=== PATIENT | female | born 1995 | race Caucasian/White ===

== ENCOUNTER 2023-09-20 11:34 | Emergency (ER) | payer BC, SELFPAY ==
[2023-09-20 11:35] VITALS: BP 149/92
--- NOTE | 2023-09-20 11:49 | ED.GENMED ---
History of Present Illness
<Brianna Khan PA-C - Last Filed: 09/20/23 15:07>
General
Chief Complaint: Back Pain
Source: patient
Exam Limitations: none
Time Seen by Provider: 09/20/23 11:42
Nursing documentation reviewed up to this point in time: agreed with
History of Present Illness
History of Present Illness:
This is a 28-year-old female with a past medical history of bipolar disorder presenting with department today with concerns of low back pain that started yesterday. This started when she was bending over and she immediately got sharp, spasm like
pain in her right lower back. Patient states that she had to pause and breath, eventually her symptoms resolved. Patient states that then she woke up this morning and was driving to work today when she got the sudden onset of severe pain again,
which was so severe that she had to slab puller and could not not drive herself to work. Patient states that the sharp pain since resolved but now she has a dull ache which is worse when standing from seated position and improves with walking and
movement. Patient works [employer] and is on her feet a lot for work. She denies fevers or chills, headache, neck pain, hematuria, saddle paresthesias, urinary incontinence.
Review of Systems
<Brianna Khan PA-C - Last Filed: 09/20/23 15:07>
Review of Systems
All Other Systems: ROS reviewed and negative except as documented in HPI and ROS
Phy Exam
<Brianna Khan PA-C - Last Filed: 09/20/23 15:07>
Physical Exam
Physical Exam:
General: Patient is well appearing and in no acute distress; non-toxic
Skin: Warm and dry, no rashes or lesions
Head: Normocephalic, atraumatic
Eyes: Sclera non-icteric. EOMs intact. PERRLA.
Cardiac: Regular rate
Pulm: Normal respiratory effort
Musculoskeletal: No midline thoracic or lumbar spinal noticed, no palpable step-off, no palpable bony deformity. Mild tenderness palpation of bilateral paralumbar muscles. No pain with passive range of motion of bilateral hips. Negative straight
leg raise bilaterally.
Neuro: CN II-XII intact, no focal neurologic deficits.
Psychiatric: Appropriate mood and affect.
Course
<Brianna Khan PA-C - Last Filed: 09/20/23 15:07>
Orders/Labs/Results
Orders:
Orders
09/20/23 12:09
Ketorolac [Toradol] 15 mg IM NOW STA
09/20/23 12:15
Lidocaine [Lidocaine 4% Patch] 1 patch TOPICAL DAILY
Apply Lidocaine patch(s) to:: right lower back
Vital Signs
Initial and Last Documented VS:
Initial Vital Signs
Temp Pulse Resp BP Pulse Ox
98.6 F 97 18 149/92 99
09/20/23 11:35 09/20/23 11:35 09/20/23 11:35 09/20/23 11:35 09/20/23 11:35
Last Documented Vital Signs
Temp Pulse Resp BP Pulse Ox
98.6 F 97 18 149/92 99
09/20/23 11:35 09/20/23 11:35 09/20/23 11:35 09/20/23 11:35 09/20/23 11:35
<Karl Mandel MD - Last Filed: 09/20/23 13:16>
Orders/Labs/Results
Orders:
Orders
09/20/23 12:09
Ketorolac [Toradol] 15 mg IM NOW STA
09/20/23 12:15
Lidocaine [Lidocaine 4% Patch] 1 patch TOPICAL DAILY
Apply Lidocaine patch(s) to:: right lower back
Vital Signs
Initial and Last Documented VS:
Initial Vital Signs
Temp Pulse Resp BP Pulse Ox
98.6 F 97 18 149/92 99
09/20/23 11:35 09/20/23 11:35 09/20/23 11:35 09/20/23 11:35 09/20/23 11:35
Last Documented Vital Signs
Temp Pulse Resp BP Pulse Ox
98.6 F 97 18 149/92 99
09/20/23 11:35 09/20/23 11:35 09/20/23 11:35 09/20/23 11:35 09/20/23 11:35
<Brianna Khan PA-C - Last Filed: 09/20/23 15:07>
MDM/Problems Addressed
Differential Diagnosis Includes:
ddx include lumbar/thoracic muscular strain, herniated nucleus pulposus, arthritis, scoliosis
MDM/Problems Addressed:
Back pain:
28-year-old female with a past medical history of bipolar disorder presenting with department today with concerns of low back pain that started yesterday. The pain started after bending over. The pain improves with movement, worse with standing from
sitting. She has no radiation of her pain, no fevers or chills, no neurologic symptoms. On physical exam, she has no midline spinal tenderness to palpable bony deformities, no indication for imaging at this time. I suspect musculoskeletal
sprain/strain. Patient will be discharged with muscle relaxant. Patient stable for discharge.
Chronic conditions affecting care:
n/a
Acute Exacerbation and/or Progression of Chronic Illness:
n/a
<Brianna Khan PA-C - Last Filed: 09/20/23 15:07>
*Pulse Oximetry
Patient hypoxic: no
*Critical Care Note
Total Time (30-74mins, 75-104mins- exclusive of procedures): Not Applicable
Data Reviewed
Review of Other/Old Records Reveals: Records (Previous ER physician documentation to review) and Discharge Summary (Discharge summaries [facility] to review)
Source: patient and records
<Brianna Khan PA-C - Last Filed: 09/20/23 15:07>
Patient Management
Escalation/DeEscalation of care consider admission/obs:
Patient stable for discharge
ED Attending Note
<Brianna Khan PA-C - Last Filed: 09/20/23 15:07>
-
Portions of this chart may have been created with voice recognition software.� Occasional wrong word or��sound alike� substitutions may have occurred due to the inherent limitations of voice recognition software.
<Karl Mandel MD - Last Filed: 09/20/23 13:16>
ED Attending Note
Patient seen and examined by attending physician: Yes
ED Attending Note:
I have seen and evaluated the patient with a [id number] encounter. I have spoken to the advance practicer provider and involved in the medical history, the physical exam, medical decision making.
Evaluation and management service: agree unless noted differently below.
Results interpretation: agree unless noted differently below.
Focused HPI: 28-year-old female with no significant chronic medical issues presents to the emergency room for evaluation of low back pain. Patient reports pain across the low back that started yesterday�she says that she did yoga/stretching and
then when she was finished she bent over to picker and packer some close and felt pain in the low back. She says symptoms have been constant since then today she felt spasming in the back that was more severe which prompted ER visit. She feels pain slightly
worse on the right; she says it is worse when she lays or sits still and better when she starts to move around. She denies any radicular/shooting pains down the legs. She denies any weakness or numbness in the legs. She denies any saddle
anesthesia. She denies any incontinence of her bowels or bladder. She denies any fevers or chills. She denies any history of drug use. She denies any history of cancer.
Physical exam: Awake alert not in distress. Marginal hypertension likely from pain, no other significant vital sign abnormalities. She has no midline tenderness in the thoracic or lumbar spine. She has reproducible pain with flexion rotation of
the low back. She has intact 5/5 motor and sensory function proximal and distal lower extremities and is ambulatory with normal gait in the emergency room.
Medical Decision Makin-year-old female presents with low back pain after bending over yesterday�today had some spasming of the low back which prompted ER visit. Exam as above. She has no red flag symptoms or exam findings. She has no fall or
trauma�in my judgment no indication for emergent imaging. Suspect likely muscular strain. Treat with NSAIDs, muscle laxer as needed for spasms. Advised to keep and stretching/early mobility. Follow-up with PCP. Patient comfortable with this
plan. All questions answered.
Discharge Plan
Departure
Patient Disposition: Home (Routine Discharge)
Date of Disposition: 09/20/23
Time of Disposition: 12:33
Patient with high blood pressure during this ER visit?: Yes
Condition: Good
Discharge Problem:
Lumbar back sprain
Instructions: Low Back Pain (DC), BLOOD PRESSURE
Prescriptions:
New
cyclobenzaprine 15 mg capsule,extended release 24hr
15 mg PO DAILY Qty: 8 0RF
Referrals:
Juliann Loja DO [Family Provider] -
Stand Alone Forms: Return to Work
Activity Restrictions/Additional Instructions:
Please return to the emergency department should you develop the inability to ambulate, urinary incontinence, fecal incontinence, weakness, fevers or chills, headache, neck pain, numbness or tingling, or any other signs or symptoms concerning to you.
I recommend taking ibuprofen and acetaminophen for your symptoms. Should you have persistent pain and spasm, you can take one cyclobenzaprine tablet before bed once daily as needed.
Please follow up with your primary care provider.
Interventions
Interventions:
*Risk Screen - Suicide Last Done: 09/20/23 12:16
*General Assessment Last Done: 09/20/23 12:16
*Neglect/Abuse Screening Last Done: 09/20/23 12:16
ED- Fall Risk Assessment Last Done: 09/20/23 12:21
*ED COVID-19 Vaccine History Last Done: 09/20/23 12:16
*Nursing Disposition Last Done: 09/20/23 12:42
ED-Musculoskeletal Assessment Last Done: 09/20/23 12:21
Discharge Date and Time
Discharge Date/Time: 09/20/23 12:42
Print Language: BHUTANESE
[2023-09-20] MEDS: TORADOL 15 MG IM (12:17)
[2023-09-20] MEDS: LIDOCAINE 4% PATCH 1 PATCH TOPICAL (12:18)
== END 2023-09-20 12:42 | disposition home or self-care (01) ==
LOC: EMR 11:34
PROVIDERS: EMERGENCY PHYSICIAN Emergency Medicine; FAMILY PHYSICIAN Family Medicine
DX: S33.5XXA Sprain of ligaments of lumbar spine, initial encounter (principal); X50.1XXA Overexertion from prolonged static or awkward postures, initial encounter; F31.9 Bipolar disorder, unspecified
CPT/HCPCS: 99282; 96372

== ENCOUNTER 2025-01-24 18:07 | Emergency (ER) | payer BC, SELFPAY ==
[2025-01-24 18:11] VITALS: BP 140/90
[2025-01-24 19:57] VITALS: BMI 25.9
[2025-01-24 20:00] VITALS: BP 116/73
[2025-01-24 21:00] VITALS: BP 116/79
--- NOTE | 2025-01-24 21:01 | ED.GENMED ---
History of Present Illness
<Karen Mata PA-C - Last Filed: 01/24/25 23:15>
General
Chief Complaint: Breathing Problem
Time Seen by Provider: 01/24/25 20:09
History of Present Illness
History of Present Illness:
Mary is a 29-year-old female who is currently 21 weeks 5 days presenting for increasing shortness of breath with ADLs. OB sent her in as they were concerned for possibility of PE. Reports that she had a upper respiratory infection last
week and has been starting to feel better from that standpoint but shortness of breath is continuing to worsen. Today she was unable to walk up a slight hill without having to stop
Phy Exam
<Karen Mata PA-C - Last Filed: 01/24/25 23:15>
General Physical Exam
General Presentation: well appearing and no apparent distress
General Skin: warm and dry
General Habitus: normal
General Mental: alert
General Hydration: appears well hydrated
ENT Exam
ENT Exam: EOMI, pharynx normal, neck supple and normocephalic
Eye Exam
Eye Exam: PERRL, cornea clear and conjunctiva normal
Cardiovascular Exam
Cardiovascular Exam: regular rate/rhythm, no edema, no murmur and normal peripheral pulses
Pulmonary Exam
Pulmonary Exam: lungs clear, no respiratory distress, no rales, no crackles, no rhonchi, no stridor, no wheezing and no cough
Gastrointestinal Exam
Gastrointestinal Exam: normal bowel sounds, non tender, soft, no organomegaly, no pulsatile mass and non distended
Neurological Exam
Neurological Exam: alert, oriented x3, no motor deficits and speech normal
Musculoskeletal Exam
Musculoskeletal Exam: full ROM and no edema
Skin Exam
Skin Exam: normal color, warm/dry, no rash and no petechia
Psychiatric Exam
Psychiatric Exam: normal mood/affect
Course
<Karen Mata PA-C - Last Filed: 01/24/25 23:15>
Orders/Labs/Results
Orders:
Orders
01/24/25 20:25
CT Chest PE Study Urgent
Comment:
Reason For Exam: SOB, 21w
01/24/25 21:47
Basic Metabolic Panel Urgent
Complete Blood Count/With Diff Urgent
01/24/25 23:05
Electrocardiogram (*1) Urgent
Reason for Study: Other
Other Reason for Exam: SOB
EKG- Treatment ONCE
01/24/25 23:10
US Legs, Bilateral [US Periph Venous LOWER Ext Juan Carlos] Urgent
Comment:
Reason For Exam: possible PE, survallience
Abnormal Lab Results
01/24/25
21:47
WBC 13.0 H 10^3/uL
(4.8-10.8)
RBC 3.39 L 10^6/uL
(4.20-5.40)
Hgb 10.8 L g/dL
(12.0-16.0)
Hct 30.6 L %
(37.0-47.0)
MCH 31.9 H pg
(27.0-31.0)
Abs Immat Gran (auto) 0.1 H 10^3/uL
(0-0.05)
Absolute Neuts (auto) 9.1 H 10^3/uL
(1.4-6.5)
Sodium 132 L mmol/L
(135-145)
Carbon Dioxide 19 L mmol/L
(22-30)
Creatinine 0.5 L mg/dL
(0.6-1.0)
01/24/25 21:47
01/24/25 21:47
Vital Signs
Initial and Last Documented VS:
Initial Vital Signs
Temp Pulse Resp BP Pulse Ox
98.5 F 97 17 140/90 99
01/24/25 18:11 01/24/25 18:11 01/24/25 18:11 01/24/25 18:11 01/24/25 18:11
Last Documented Vital Signs
Temp Pulse Resp BP Pulse Ox
98.5 F 79 13 111/71 99
01/24/25 18:11 01/25/25 01:00 01/25/25 01:00 01/25/25 01:00 01/25/25 01:00
<Gideon Donaldson, DO - Last Filed: 01/25/25 01:15>
Orders/Labs/Results
Orders:
Orders
01/24/25 20:25
CT Chest PE Study Urgent
Comment:
Reason For Exam: SOB, 21w
01/24/25 21:47
Basic Metabolic Panel Urgent
Complete Blood Count/With Diff Urgent
01/24/25 23:05
Electrocardiogram (*1) Urgent
Reason for Study: Other
Other Reason for Exam: SOB
EKG- Treatment ONCE
01/24/25 23:10
US Legs, Bilateral [US Periph Venous LOWER Ext Juan Carlos] Urgent
Comment:
Reason For Exam: possible PE, survallience
Abnormal Lab Results
01/24/25
21:47
WBC 13.0 H 10^3/uL
(4.8-10.8)
RBC 3.39 L 10^6/uL
(4.20-5.40)
Hgb 10.8 L g/dL
(12.0-16.0)
Hct 30.6 L %
(37.0-47.0)
MCH 31.9 H pg
(27.0-31.0)
Abs Immat Gran (auto) 0.1 H 10^3/uL
(0-0.05)
Absolute Neuts (auto) 9.1 H 10^3/uL
(1.4-6.5)
Sodium 132 L mmol/L
(135-145)
Carbon Dioxide 19 L mmol/L
(22-30)
Creatinine 0.5 L mg/dL
(0.6-1.0)
01/24/25 21:47
01/24/25 21:47
Vital Signs
Initial and Last Documented VS:
Initial Vital Signs
Temp Pulse Resp BP Pulse Ox
98.5 F 97 17 140/90 99
01/24/25 18:11 01/24/25 18:11 01/24/25 18:11 01/24/25 18:11 01/24/25 18:11
Last Documented Vital Signs
Temp Pulse Resp BP Pulse Ox
98.5 F 79 13 111/71 99
01/24/25 18:11 01/25/25 01:00 01/25/25 01:00 01/25/25 01:00 01/25/25 01:00
<Karen Mata PA-C - Last Filed: 01/24/25 23:15>
MDM/Problems Addressed
Differential Diagnosis Includes:
Patient is nontachycardic on my evaluation. Normotensive. No supplemental oxygen. CT PE obtained and shows motion artifact for small subsegmental pulmonary embolism. Discussed findings with the patient states she was shaking during CT scan as she
was cold. However we will obtain lower extremity Dopplers to ensure no DVT. If DVTs are present then finding would be convincing for pulmonary embolism.
<Karen Mata PA-C - Last Filed: 01/24/25 23:15>
*Pulse Oximetry
SaO2: 100
Oxygen Mode of Delivery: Room air
<Gideon Donaldson DO - Last Filed: 01/25/25 01:15>
*Pulse Oximetry
Patient hypoxic: no
*Critical Care Note
Total Time (30-74mins, 75-104mins- exclusive of procedures): Not Applicable
<Gideon Donaldson DO - Last Filed: 01/25/25 01:15>
Update Note
Update Note:
1:15 AM update patient ambulated in the ER with no symptoms, pulse ox remained 100% no tachypnea or tachycardia
ED Attending Note
<Karen Mata PA-C - Last Filed: 01/24/25 23:15>
-
Portions of this chart may have been created with voice recognition software.� Occasional wrong word or��sound alike� substitutions may have occurred due to the inherent limitations of voice recognition software.
<Gideon Donaldson DO - Last Filed: 01/25/25 01:15>
ED Attending Note
Patient seen and examined by attending physician: Yes
I performed the substantive portion of visit, reviewed & personally made and approve the management plan that is documented in note by myself or ARTURO.: Yes
ED Attending Note:
Seen with ANNE MARIE examined independently 29-year-old female G1 21 weeks recent URI, no week she has had some lightheadedness, felt short of breath walking up a hill, referred here for evaluation CT report noted, Dopplers noted, on evaluation her heart
rate is in the 70s, pulse ox 100% on room air respiratory rate of [address] report with the patient and her spouse, shared decision making she does admit that she was shaking a little bit when she got the CT scan, because she was cold, I think
she can be discharged safely without committing her to anticoagulation, clearly reviewed indications for returning to the ER also sent a message to her referring [facility]
Discharge Plan
Departure
Patient Disposition: Home (Routine Discharge)
Date of Disposition: 01/25/25
Time of Disposition: 01:13
Patient with high blood pressure during this ER visit?: No
Condition: Good
Covid-19: Not Applicable
Discharge Problem:
Instructions: Shortness of Breath (Dyspnea) (DC), - The Sixth Month
Prescriptions:
No Action
cyclobenzaprine 15 mg capsule,extended release 24hr
15 mg PO DAILY Qty: 8 0RF
Referrals:
Melly Lobo PA-C [Family Provider, Family Practice]
Activity Restrictions/Additional Instructions:
Follow-up with your [facility] ASSIST[facility] and your primary care provider
Return to the ER for any worsening symptoms or any other concerns
Interventions
Interventions:
*General Assessment Last Done: 01/24/25 19:58
*Neglect/Abuse Screening Last Done: 01/24/25 19:59
*ED COVID-19 Vaccine History Last Done: 01/24/25 19:58
*ED Influenza Vaccine History Last Done: 01/24/25 19:58
[facility] Risk Assessment Tool Last Done: 01/24/25 19:59
*Risk Screen - Suicide (C-SSRS) Last Done: 01/24/25 19:59
ED- Cardiac Assessment Last Done: 01/24/25 19:58
ED- Pulmonary Assessment Last Done: 01/24/25 19:58
Discharge Date and Time
Print Language: GEORGIAN
[2025-01-24 21:57] LABS: Hematocrit 30.6 % (37.0-47.0); Hemoglobin 10.8 g/dL (12.0-16.0); Mean Corp Hgb Conc. 35.3 g/dL (33.0-37.0); Mean Corpuscular Volume 90.3 fL (81.0-99.0); Nucleated Red Blood Cells % 0 %; Platelet Count 346 10^3/uL (130-400); Red Cell Dist. Width 12.9 % (11.5-14.5)
[2025-01-24 22:00] VITALS: BP 113/69
[2025-01-24 22:17] LABS: Blood Urea Nitrogen 8 mg/dl (7-17); Calcium 9.2 mg/dl (8.4-10.2); Carbon Dioxide 19 mmol/L (22-30); Chloride 106 mmol/L (98-107); Estimated Creatinine Clearance 114 ml/min; Glucose 84 mg/dl (70-99); Potassium 3.8 mmol/L (3.5-5.1); Sodium 132 mmol/L (135-145); eGFR > 60.00
[2025-01-24 22:43] VITALS: BP 118/67
[2025-01-24 23:00] VITALS: BP 113/67
[2025-01-25 00:01] VITALS: BP 120/71
[2025-01-25 01:00] VITALS: BP 111/71
[2025-01-25 01:46] VITALS: BP 111/71
== END 2025-01-25 01:50 | disposition home or self-care (01) ==
LOC: EMR 18:07
PROVIDERS: Surgery Trauma Surgery; EMERGENCY PHYSICIAN Emergency Medicine; FAMILY PHYSICIAN Physician Assistant Medical
DX: O99.512 Diseases of the respiratory system complicating pregnancy, second trimester (principal); R06.02 Shortness of breath; Z3A.21 21 weeks gestation of pregnancy
CPT/HCPCS: 99284; 71275; 80048; 85025; 93005; 93970; Q9967